=== PATIENT | male | born 1995 | race Caucasian/White ===

== ENCOUNTER 2018-06-29 23:06 | Emergency (ER) | payer MEDICAID ==
[~2018-06-29] VITALS: Ht 170.2 cm; Wt 74.8 kg
[2018-06-30] MEDS ORDERED: Vibramycin100 MG PO (00:39)
== END 2018-06-30 01:23 | disposition home or self-care (01) ==
LOC: ER 23:06
DX: L02.413 Cutaneous abscess of right upper limb (principal); F19.10 Other psychoactive substance abuse, uncomplicated; F17.200 Nicotine dependence, unspecified, uncomplicated; Z79.2 Long term (current) use of antibiotics
CPT/HCPCS: 10060; 73090; 99283-25

== ENCOUNTER 2019-01-03 14:14 | Inpatient (IN) | payer SELFPAY ==
[~2019-01-03] VITALS: Ht 175.3 cm; Wt 72.6 kg
[~2019-01-03 14:14] MED LIST: Augmentin 875-1 EACH PO; Bactrim Ds Tab1 EACH PO; IBUP800 PO; Vibramycin100 MG PO
[2019-01-03 14:53] LABS: BASOPHILS ABSOLUTE AUTO 0.05 K/mm3 (0.00-0.23); BASOPHILS PERCENT AUTO 0 % (0-2); EOSINOPHILS PERCENT AUTO 0 % (0-6); Hemoglobin 13.4 g/dL (13.5-17.5); IMMATURE GRAN ABSOLUTE AUTO 0.03 K/mm3 (0.00-0.10); IMMATURE GRAN PERCENT AUTO 0 % (0-1); LYMPHOCYTES ABSOLUTE AUTO 1.17 K/mm3 (0.84-5.20); LYMPHOCYTES PERCENT AUTO 10 % (21-46); MONOCYTES ABSOLUTE AUTO 1.18 K/mm3 (0.16-1.47); MONOCYTES PERCENT AUTO 10 % (4-13); Mean Corpuscular HGB 30.9 pg (26.0-34.0); Mean Corpuscular HGB Conc 35.3 g/dL (31.5-36.5); Mean Corpuscular Volume 88 fL (80-100); Mean Platelet Volume 9.7 fL (9.1-12.4); NEUTROPHILS ABSOLUTE AUTO 9.17 K/mm3 (1.96-9.15); NEUTROPHILS PERCENT AUTO 79 % (41-73); Platelet Count 250 K/mm3 (150-400); RDW Coefficient Variation 12.8 % (11.7-14.2); RDW Standard Deviation 41.4 fL (35.1-46.3); Red Blood Cell Count 4.33 M/mm3 (4.30-5.90)
[2019-01-03 15:13] LABS: Anion Gap 8 mmol/L (6-16); Blood Urea Nitrogen 12 mg/dL (8-24); Bun/Creatinine Ratio 14.4 (12.0-20.0); CO2, Blood 26 mmol/L (21-32); Calcium, Blood 9.1 mg/dL (8.5-10.1); Chloride, Blood 99 mmol/L (98-108); Creatinine, Blood 0.83 mg/dL (0.60-1.20); Glomerular Filtration Rate >60 (60-); Glucose, Blood 99 mg/dL (70-99); Potassium, Blood 4.2 mmol/L (3.5-5.5); Sodium, Blood 133 mmol/L (136-145)
--- NOTE | 2019-01-04 05:42 | NUR ---
SHIFT SUMMARY AND TRANSFER NOTE: PT ARRIVED TO UNIT @ 1949 THIS SHIFT. PT IS A&O, INDEPENDENT IN . PT REPORTS "FALLING DOWN A HILL AND SCRAPING FINGER ON GRAVEL" X 2.5 WKS AGO. IT HAS PROGRESSIVELY GOTTEN WORSE, PER PT. ABSCESS TO R INDEX FINGER IS PURULENT. SWELLING + REDNESS TO ENTIRE R HAND, PT UNABLE TO MAKE A FIST D/T SWELLING/TIGHTNESS AND PAIN. CLEANED SITE PT COULD TOLERATE, AND PT PUT STANDARD BAND AID OVER THE SITE HE "COULDN'T TOLERATE ANYMORE TOUCHING." PHOTOS DOCUMENTED AFTER CONSENT GAINED. SEE CHART FOR IMAGES. PT HAS SERVICE DOG AT BEDSIDE, APPROVED BY NURSING SHOW DESIGN SUPERVISOR. LOW GRADE FEVER OF 100.1 THIS AM; ADMINISTERD 500MG TYLENOL PER ORDERS. TEMP DOWN TO 99.2. VSS OTHERWISE. RESP E/U ON RA. LR AT 150 ML/HR X 1 BAG; INFUSION COMPLETE. NO DVT PROPHYLAXIS PER ORDERS. WILL CONT TO MONITOR AND PROVIDE CARE UNTIL PRESUMED BY ONCOMING RN.
--- NOTE | 2019-01-04 13:45 | NUR ---
History, Chart, Medications and Allergies reviewed before start of procedure. Lungs clear T/O to Auscultation. Patient confirms NPO status and agrees with scheduled surgery.
--- NOTE | 2019-01-04 15:13 | NUR ---
01/04/19 1513 Serena Tripp ALL COUNTS CORRECT.
--- NOTE | 2019-01-04 16:19 | NUR ---
RECIEVED PATIENT AT 1506 FROM OR ROOM. RECIEVED REPORTS PATIENTS VSS DRESSING CLEAN DRY INTACT. PATIENT COOPERATIVE AND BECAME ALERT AND ORIENTED AND STARTED TO SAY HURT. MEDICATED FOR PAIN AND TITRATED MEDICATION FERMÍN 5 MINUTES STARTING AT 1518 UP TO 175 MG OF FENTANYL. PATIENT DID NOT REPORT BETTER APIN CONTROLL BUT FACIAL EXPRESSION DOES NOT SHW PAIN, NO GRIMACING ETCETERA. TURNED CARE OVER TO Yair MELARA RN AT 1540.
--- NOTE | 2019-01-04 17:32 | NUR ---
SUMMARY PT RESTING QUIETLY IN BED, HAS BEEN INDEPENDENT IN THE ROOM, PT HAD AN I AND D OF HIS R INDEX FINGER AND THUMB TODAY, CRISTHIAN WELL, PT MED PER EMAR FOR PAIN, PT OCC TALKING IN THE ROOM, WHEN ASKED TO WHO HE REPLIES, "TO MYSELF" PT WITH A HISTORY OF SCHIZOPHRENIA, ASKED PT IF HE WAS ON MEDS FOR THIS AND HE REPLIED, "NONE OF THEM HELP" PT VERY STOIC AND STANDOFFISH, VSS, NO ACUTE CHANGES, WILL CONT TO MONITOR
--- NOTE | 2019-01-05 01:26 | NUR ---
PAIN: PLACED CALL TO HOSPITALIST IN REGARDS TO UNCONTROLLED PAIN. HOSPITALIST ORDERED 400 MG IBUPROFEN Q4H PRN, IN ADDITION TO 5 MG OXY Q6H PRN. WILL CONT TO MONITOR.
[2019-01-05 05:35] LABS: BASOPHILS ABSOLUTE AUTO 0.07 K/mm3 (0.00-0.23); BASOPHILS PERCENT AUTO 1 % (0-2); EOSINOPHILS ABSOLUTE AUTO 0.36 K/mm3 (0.00-0.68); EOSINOPHILS PERCENT AUTO 5 % (0-6); Hematocrit 37.5 % (37.0-53.0); Hemoglobin 12.2 g/dL (13.5-17.5); IMMATURE GRAN PERCENT AUTO 0 % (0-1); LYMPHOCYTES ABSOLUTE AUTO 3.38 K/mm3 (0.84-5.20); LYMPHOCYTES PERCENT AUTO 45 % (21-46); MONOCYTES ABSOLUTE AUTO 1.18 K/mm3 (0.16-1.47); MONOCYTES PERCENT AUTO 16 % (4-13); Mean Corpuscular HGB 30.3 pg (26.0-34.0); Mean Corpuscular HGB Conc 32.5 g/dL (31.5-36.5); Mean Platelet Volume 10.4 fL (9.1-12.4); NEUTROPHILS ABSOLUTE AUTO 2.57 K/mm3 (1.96-9.15); NEUTROPHILS PERCENT AUTO 34 % (41-73); Platelet Count 208 K/mm3 (150-400); RDW Coefficient Variation 13.2 % (11.7-14.2); RDW Standard Deviation 45.2 fL (35.1-46.3); Red Blood Cell Count 4.02 M/mm3 (4.30-5.90); White Blood Cell Count 7.56 K/mm3 (4.00-11.30)
[2019-01-05 05:38] LABS: Mean Corpuscular Volume 93 fL (80-100)
[2019-01-05 06:08] LABS: Anion Gap 6 mmol/L (6-16); Blood Urea Nitrogen 13 mg/dL (8-24); Bun/Creatinine Ratio 13.3 (12.0-20.0); CO2, Blood 29 mmol/L (21-32); Calcium, Blood 8.6 mg/dL (8.5-10.1); Chloride, Blood 104 mmol/L (98-108); Creatinine, Blood 0.98 mg/dL (0.60-1.20); Glomerular Filtration Rate >60 (60-); Glucose, Blood 85 mg/dL (70-99); Potassium, Blood 3.6 mmol/L (3.5-5.5); Sodium, Blood 139 mmol/L (136-145)
[2019-01-05 11:22] LABS: Vancomycin, Trough 22.6 ug/mL (5.0-10.0)
--- NOTE | 2019-01-05 11:26 | NUR ---
CRITICAL VANCO TROUGH VALUE RECIEVED, RESULT REPORTED TO DIRK IN PHARMACY.
--- NOTE | 2019-01-05 12:53 | NUR ---
Spiritual care visit conducted. I was approached by a [employer] employee and asked if I could deliver a portable wagon and dog food to patient. I first went into patient's room and introduced myself. Patient was not very talkative but stated that he was reorginizing his things so that when he leaves he can travel more easily. I said that someone had donated some items that may help with his current dilemma. I then brought the wagon and the food into patient and he smiled and expressed gratitiude because they are both items that he is needing. Patient remained very quiet and did not engage in conversation so I prayed a blessing and he blessed me. I left the room.
--- NOTE | 2019-01-05 13:18 | NUR ---
1305 VERIFIED WITH PHARMACY THAT VANCO 1G COULD BE GIVEN, PHARMACY REPORTED YES AND GIVE NEXT DOSE AT 1830. 1310 PT NOT IN ROOM.
--- NOTE | 2019-01-05 13:31 | NUR ---
LATE ENTRY. 1200 DR. HARMAN IN TO SEE PT, R INDEX FINGER AND THUMB SOAKED IN CHLORHEXIDINE SOLUTION FOR 10 MINUTES EACH DIGIT, THEN REDRESSED ORDERED.
--- NOTE | 2019-01-05 13:33 | NUR ---
1330 PT RETURNED TO ROOM, IV VANCO STARTED.
--- NOTE | 2019-01-05 17:53 | NUR ---
SHIFT SUMMARY. A&OX4, INDEPENDENT IN ROOM. PT DENIES SOB, N/V, SOB. OCCASSIONALLY OUT TO SMOKE. PAIN MANAGED WITH CURRENT ORDERS. NEW IV STARTED. NO NEW CHANGES.
--- NOTE | 2019-01-06 01:33 | NUR ---
PATIENT AGITATED PATIENT WOKEN BY RN TO START IV ANTIBIOTIC. AFTER PATIENT WOKE UP PATIENT BECAME INCREASINGLY AGITATED YELLING OBSCENITIES IN HIS ROOM AND YELLING AT WHAT APPEARED TO BE HALLUCINATIONS. RN SHUT ROOM DOOR TO REDUE DISTURBANCE TO OTHER PATIENTS. PATIENT BEGAN SCREAMING THREATS TO UNKNOWN INDIVIDUALS WHILE ALONE IN HIS ROOM. RN ENTERED AND ASKED PATIENT TO LOWER HIS VOICE. PATIENT YELLED ABOSCENTIES AT RN AND DEMANDED HIS ANTIBIOTIC BE STOPPED. PATIENT BEGAN PULLING AT IV LINE. RN ABLE TO DISCONNECT IV TUBING. PATIENT LEFT ROOM AND WENT OUTSIDE. PATIENT RETURNED APPROXIMATELY 10 MINUTES LATER. PATIENT APOLOGIZED FOR HIS OUTBURST AND STATED HE WOULD ALLOW HIS IV ANTIBIOTIC TO BE RECONNECTED.
--- NOTE | 2019-01-06 06:28 | NUR ---
SHIFT SUMMARY PATIENT SLEPT MOST OF NIGHT EXCEPT FOR AN EPISODE OF AGITATION. PATIENT HAS REFUSED WOUND CARE AND ROLLED OVER OR COVERED HIS FACE WHEN ASKED IF HE WILL PARTICIPATE. MEDICATED X 1 FOR PAIN. DENIES NAUSEA OR SHORTNESS OF BREATH. WELL BEHAVED DOG IN ROOM. CALL LIGHT IN REACH, WILL CONTINUE TO MONITOR.
--- NOTE | 2019-01-06 15:08 | NUR ---
SECURITY CALLED AND TOOK PT'S BELONGINGS TO SAFE. INCLUDING A POCKET KNIFE RN FOUND UNDER PT'S PILLOW. DR HARMAN VIEWED PT'S HAND AT AROUND 1100 AND RN RE-DRESSED WITH NONADHERENT GAUZE/COBAN. PT HAD A DOG IN THE ROOM STATING IT IS HIS FRIEND JP WHO WAS SENT TO RETIREMENT. PT AGREED FOR DOG TO GO TO [facility] PT IS UNABLE TO CARE FOR DOG IN HOSPITAL. RN'S WERNT SURE OF DOG OWNERS NAME- PT THOUGHT IS WAS TIFFANIE RIVERO AND OR TIFFANIE LANG- CALLED [employer] AND GAVE THEM THE NAME.
--- NOTE | 2019-01-06 17:13 | NUR ---
SUMM- PT ALERT, VERBAL AND DIRECTABLE. THIS AM HAD A MANIC EPISODE AND BEGAN SCREAMING AND THREATENING TO SLASH THROATS, CARVE OUT THAT "BITCHES" CHEST. ANGER SPOKEN ABOUT DIFFERENT NATIONALITIES, AND PEDIFILES. WAS DIRECTABLE WHEN RN RETURNED WITH HIS PAIN PILLS AND WAS ABLE TO STAY CALM IN ORDER TO RECEIVE MED. 3-4 MORE OUTBURSTS OF SCREAMING ABOUT HARM DONE TO HIM, PUNKS, PEOPLE DOING HIM HARM. DID NOT DIRECT AT STAFF, BUT ONE TIME HE APPEARED PARANOID AND HAD HIS HAND IN HIS POCKET, RN WAS CONCERNED HE MIGHT HAVE A WEAPON. RN LATER FOUND A 2-4" POCKET KNIFE IN HIS BED, WAS ABLE TO RETRIEVE IT WITH OUT CONFRONTATION WITH PT. GAVE KNIFE SECURITY TOOK TO BELONGINGS THAT ARE DOWNSTAIRS. PT GOES OUTSIDE TO SMOKE. STEADY ON FEET. PAIN MANAGED WITH OXYCODONE AND IBUPROFEN Q4 PRN, STATES PAIN REMAINS BUT MEDS HELP. TOLERATING FOOD AND FLUIDS. VOIDING AND STATES BM 02/02. WILL REPORT TO NOC RN.
--- NOTE | 2019-01-07 05:15 | NUR ---
SHIFT SUMMARY THE PT ADMITTED FOR CELLULITIS AND ABCESS OF THE R HAND. FULL CODE. REGULAR DIET. ELEVATE RUE TOLLERATED. NO MECHANICAL OR CHEMICAL PROPHYLAXIS DUE TO LOW RISK FOR VTE. SOAK R INDEX FINGER AND THUMB IN A BASIN OF CHLORHEXIDINE MIXED WITH WATER FOR 10 MINUTES WHILE DOING FOSTER EXERCISES. THEN RE-APPLY DRESSING (NON-ADHERENT GAUZE COVERED WITH COBAN) BID. 20 G IV TO L FA. MEDS WHOLE WITH WATER. INDEPENDENT. HOMELESS. PER REPORT THE PT HAD A KNIFE UNDER PILLOW YESTERDAY THAT WAS REMOVED AND TAKEN TO SECURITY. THE PT PRESENTED TO THE ED WITH C/O SWELLING AND DRAINAGE TO THE R FINGER AFTER SCRAPING IT 2.5 WEEKS PRIOR. THE PT REPORTED HAVING FALLEN DOWN A HILL AND SCRAPING FINGER ON GRAVEL. THE PT ALSO REPORTED HURING SHOULDER DURING FALL, WARM BLANKET APPLIED AND PT HAD NO FURTHER C/O SHOULDER PAIN THE REMAINDER OF THE NIGHT. THE PT UNDERWENT I AND d WITH CX AND RESULTS SHOWED STAPH BUT NOT MRSA. THE PLAN IS FOR THE PT TO REMAIN IN THE HOSPITAL DUE TO BEING HOMELESS WITH PSYCHIATRIC ISSUES UNTIL WOUNDS SHOW SIGNS OF GOOD HELING. IT IS UNLIKELY THAT PT CAN CARE FOR WOUNDS OUTPATIENT. THE PT HAD SEVERAL YELLING OUTBURSTS THIS NIGHT, ONE OF WHICH OCCURRED OFF THE UNIT AND SECURITY WAS CALLED. THE PT USES VULGAR LANGUAGE AND THREATENS TO CUT SOMEONE OR SOMETHING OPEN WITH A CHAINSAW, AMONG OTHER THINGS. THE PT REFERS TO THIS PERSON THAT HE WISHES TO CUT OPEN A CHILD MOLESTER. THE PT HAD ONE OUTBURST WHERE THE PT WAS SLAMMING DOORS IN ROOM AND SOUNDED THOUGH PT MAY HAVE BEEN BANGING ON WADE BUT THAT IS NOT COMPLETELY CLEAR. THE PT DOES NO APPEAR TO BE A THREAT TO STAFF OR OTHER PATIENTS. THE PT WENT OUTSIDE TO SMOKE SEVERAL TIMES. THE PT APPEARS TO BE SLEEPING COMFORTABLY AT THIS TIME WITH NO APPARENT SIGNS OF ACUTE DISTRESS. ABLE TO MAKE NEEDS KNOWN AND CALL LIGHT IN REACH.
--- NOTE | 2019-01-07 07:51 | NUR ---
PT DISCHARGED/VIOLENT EPISODE PT ESCORTED OUT BY SECURITY. PT WOKE THIS AM AND STARTED YELLING/SCREAMING/CURSING. NURSING IMAGING ENGINEER & SECURITY CALLED TO ASSIST WITH PT BEHAVIOR. PT STARTED PUNCHING THE DOOR & WADE WITHIN THE ROOM. PT STATED HE WANTED TO LEAVE & COULDNT REMEMBER WHAT CARE HE HAD RECIEVED. NURSING IMAGING ENGINEER, LILLI, TRIED TO GET PT TO AGREE TO SEE A ER PHYSICIAN. PT REFUSED & STATED HE WANTED HIS THINGS AND TO GET OUT OF THIS HOSPITAL. PT WAS HAVING AUDITORY & VISUAL HALLUCINATIONS. PT NOW DISCHARGED AMA. PT REFUSED TO SIGN ANY PAPERWORK. PT RIPED HIS IV OUT. IV INTACT. KILN MAINTENANCE AWARE OF SITUATION. DR. RAYMOND CALLED AND INFORMED OF EVENT.
--- NOTE | 2019-01-07 08:49 | NUR ---
THIS RN CONTACTED BY NURSING FOOD SERVICE AIDE LILLI WHO STATED PT RETURNED TO HOSPITAL ASKING FOR ANITBIOTICS AND PAIN MEDICATION. THIS RN CONTACTED DR RAYMOND WHO WROTE FOR 500 MG KEFLEX PO BID #[id number] NO REFILLS. CALLED THIS [facility] TO [facility] PER NURSING FOOD SERVICE AIDE'S REQUEST. DR. RAYMOND DID NOT WRITE FOR PAIN MEDICATION.
== END 2019-01-07 07:40 | disposition left against medical advice (07) | DRG 872 ==
LOC: ER 14:14 → MEDS 17:25
PROVIDERS: Orthopaedic Surgery; Pharmacist; Physician Assistant; ADMIT Internal Medicine
PROC: 0HDFXZZ Extraction of Right Hand Skin, External Approach (ICD-10-PCS; principal; 2019-01-04 13:30)
DX: A41.01 Sepsis due to Methicillin susceptible Staphylococcus aureus (principal); L02.511 Cutaneous abscess of right hand; L03.011 Cellulitis of right finger; Z59.0 Homelessness; F17.200 Nicotine dependence, unspecified, uncomplicated
CPT/HCPCS: 36415; 73130; 80048; 80202; 83605; 85025; 87040; 87070; 87075; 87077; 87147; 87186; 87205; 96365; 96375; 97110; 97162; 99285-25; J0690; J0696; J1885; J3010; J3370; J7120

== ENCOUNTER → 2019-07-19 | Outpatient (CLI) | payer OTHER ==
[~2019-07-19] MED LIST changes: +Atarax10 MG PO; +Augmentin 500-1 EACH PO; +IBUP800; +REXULTI2 MG PO; +Roxicodone5 MG PO
[2019-07-19 20:08] LABS: BASOPHILS PERCENT AUTO 1 % (0-2); EOSINOPHILS ABSOLUTE AUTO 0.43 K/mm3 (0.00-0.68); EOSINOPHILS PERCENT AUTO 6 % (0-6); Hematocrit 38.2 % (37.0-53.0); Hemoglobin 12.8 g/dL (13.5-17.5); IMMATURE GRAN ABSOLUTE AUTO 0.01 K/mm3 (0.00-0.10); IMMATURE GRAN PERCENT AUTO 0 % (0-1); LYMPHOCYTES ABSOLUTE AUTO 2.08 K/mm3 (0.84-5.20); LYMPHOCYTES PERCENT AUTO 29 % (21-46); MONOCYTES ABSOLUTE AUTO 0.62 K/mm3 (0.16-1.47); MONOCYTES PERCENT AUTO 9 % (4-13); Mean Corpuscular HGB 30.7 pg (26.0-34.0); Mean Corpuscular HGB Conc 33.5 g/dL (31.5-36.5); Mean Corpuscular Volume 92 fL (80-100); Mean Platelet Volume 10.2 fL (9.1-12.4); NEUTROPHILS ABSOLUTE AUTO 3.85 K/mm3 (1.96-9.15); NEUTROPHILS PERCENT AUTO 54 % (41-73); Platelet Count 284 K/mm3 (150-400); RDW Coefficient Variation 12.1 % (11.7-14.2); RDW Standard Deviation 40.7 fL (35.1-46.3); Red Blood Cell Count 4.17 M/mm3 (4.30-5.90); White Blood Cell Count 7.09 K/mm3 (4.00-11.30)
[2019-07-19 20:38] LABS: Percent Saturation 33.6 % (20.0-50.0)
== END ==
LOC: LAB 19:29 → LAB SHORT 19:29
PROVIDERS: Family Medicine
DX: D50.9 Iron deficiency anemia, unspecified (principal); D64.89 Other specified anemias
CPT/HCPCS: 82728; 83540; 83550; 85025; 85060

== ENCOUNTER 2019-08-09 18:17 | Emergency (ER) | payer OTHER ==
[~2019-08-09] VITALS: Ht 177.8 cm; Wt 68.0 kg
[~2019-08-09 18:17] MED LIST changes: -Atarax10 MG PO; -Roxicodone5 MG PO
[2019-08-09] MEDS ORDERED: Atarax10 MG PO (18:26)
[2019-08-09] MEDS ORDERED: Roxicodone5 MG PO (19:49)
== END 2019-08-09 20:17 | disposition home or self-care (01) ==
LOC: ER 18:17
DX: S42.021A Displaced fracture of shaft of right clavicle, initial encounter for closed fracture (principal); V29.9XXA Motorcycle rider (driver) (passenger) injured in unspecified traffic accident, initial encounter; F17.210 Nicotine dependence, cigarettes, uncomplicated; F32.9 Major depressive disorder, single episode, unspecified; F20.9 Schizophrenia, unspecified
CPT/HCPCS: 73030; 99283-25

== ENCOUNTER 2020-11-17 23:00 | Emergency (ER) | payer OTHER ==
[~2020-11-17] VITALS: Ht 177.8 cm; Wt 63.5 kg
[~2020-11-17 23:00] MED LIST changes: +Atarax10 MG PO; +Roxicodone5 MG PO
== END 2020-11-18 00:50 | disposition home or self-care (01) ==
LOC: ER 23:00
DX: S20.211A Contusion of right front wall of thorax, initial encounter (principal); M79.672 Pain in left foot; R06.02 Shortness of breath; F17.210 Nicotine dependence, cigarettes, uncomplicated; Z79.899 Other long term (current) drug therapy; W01.198A Fall on same level from slipping, tripping and stumbling with subsequent striking against other object, initial encounter
CPT/HCPCS: 71045; 99283-25; A9270

== ENCOUNTER 2021-03-25 03:38 | Emergency (ER) | payer OTHER ==
[2021-03-25 07:39] LABS: Alanine Aminotransfer (ALT/SGP 27 U/L (12-78); Albumin, Blood 4.1 g/dL (3.4-5.0); Albumin/Globulin Ratio 1.3 (0.8-1.8); Alk Phos 58 U/L (50-136); Anion Gap 2 mmol/L (6-16); Aspartate Aminotrans (AST/SGOT 27 U/L (12-37); Bilirubin, Total 0.5 mg/dL (0.1-1.0); Blood Urea Nitrogen 17 mg/dL (8-24); Bun/Creatinine Ratio 14.3 (12.0-20.0); CO2, Blood 31 mmol/L (21-32); Calcium, Blood 9.1 mg/dL (8.5-10.1); Chloride, Blood 107 mmol/L (98-108); Creatinine, Blood 1.19 mg/dL (0.60-1.20); Globulin, Blood 3.1 g/dL (2.2-4.0); Glomerular Filtration Rate >60 (60-); Glucose, Blood 83 mg/dL (70-99); Potassium, Blood 3.5 mmol/L (3.5-5.5); Sodium, Blood 140 mmol/L (136-145); Total Protein, Blood 7.2 g/dL (6.4-8.2)
[2021-03-25 07:40] LABS: BASOPHILS ABSOLUTE AUTO 0.07 K/mm3 (0.00-0.23); BASOPHILS PERCENT AUTO 1 % (0-2); EOSINOPHILS ABSOLUTE AUTO 0.33 K/mm3 (0.00-0.68); EOSINOPHILS PERCENT AUTO 5 % (0-6); Hematocrit 39.6 % (37.0-53.0); Hemoglobin 13.1 g/dL (13.5-17.5); IMMATURE GRAN ABSOLUTE AUTO 0.01 K/mm3 (0.00-0.10); IMMATURE GRAN PERCENT AUTO 0 % (0-1); LYMPHOCYTES PERCENT AUTO 37 % (21-46); MONOCYTES ABSOLUTE AUTO 0.67 K/mm3 (0.16-1.47); MONOCYTES PERCENT AUTO 10 % (4-13); Mean Corpuscular HGB Conc 33.1 g/dL (31.5-36.5); Mean Corpuscular Volume 91 fL (80-100); Mean Platelet Volume 9.3 fL (9.1-12.4); NEUTROPHILS ABSOLUTE AUTO 3.06 K/mm3 (1.96-9.15); NEUTROPHILS PERCENT AUTO 47 % (41-73); Platelet Count 245 K/mm3 (150-400); RDW Coefficient Variation 12.8 % (11.7-14.2); RDW Standard Deviation 42.9 fL (35.1-46.3); Red Blood Cell Count 4.37 M/mm3 (4.30-5.90)
[2021-03-25 07:41] LABS: White Blood Cell Count 6.54 K/mm3 (4.00-11.30)
== END 2021-03-25 05:15 | disposition home or self-care (01) ==
LOC: ER 03:38
PROVIDERS: Emergency Medicine
DX: N20.1 Calculus of ureter (principal); F17.210 Nicotine dependence, cigarettes, uncomplicated
CPT/HCPCS: 74176; 80053; 85025; 96374; 96375; 99284-25; A9270; J1170; J2405; J7030

== ENCOUNTER 2022-09-25 20:56 | Emergency (ER) | payer OTHER ==
[~2022-09-25] VITALS: Ht 172.7 cm; Wt 72.6 kg
[~2022-09-25 20:56] MED LIST changes: +OLAN10 PO; +OXAYDO5 M1 PO
[2022-09-26] MEDS ORDERED: Percocet 5-3251 EACH PO (00:43)
== END 2022-09-26 00:59 | disposition home or self-care (01) ==
LOC: ER 20:56
DX: T25.232A Burn of second degree of left toe(s) (nail), initial encounter (principal); T31.0 Burns involving less than 10% of body surface; F17.210 Nicotine dependence, cigarettes, uncomplicated; X08.8XXA Exposure to other specified smoke, fire and flames, initial encounter
CPT/HCPCS: A9270

== ENCOUNTER 2023-06-20 15:51 | Emergency (ER) | payer OTHER ==
[~2023-06-20] VITALS: Ht 167.6 cm; Wt 55.3 kg
[~2023-06-20 15:51] MED LIST changes: +Percocet 5-3251 EACH PO
[2023-06-20] MEDS ORDERED: PALIPERIDONE ER6 MG PO (16:40)
[2023-06-20] MEDS ORDERED: Hydroxyzine HCl50 MG (16:40)
[2023-06-20] MEDS ORDERED: TRAZ50 PO (16:41)
== END 2023-06-20 16:52 | disposition home or self-care (01) ==
LOC: ER 15:51
DX: S60.211A Contusion of right wrist, initial encounter (principal); S50.11XA Contusion of right forearm, initial encounter; Y04.8XXA Assault by other bodily force, initial encounter; F17.210 Nicotine dependence, cigarettes, uncomplicated
CPT/HCPCS: 73090; 99283-25; A9270

== ENCOUNTER 2023-11-30 03:24 | Emergency (ER) | payer OTHER ==
[~2023-11-30] VITALS: Ht 177.8 cm; Wt 72.6 kg
[~2023-11-30 03:24] MED LIST changes: +Hydroxyzine HCl50 MG; +PALIPERIDONE ER6 MG PO; +TRAZ50 PO
[2023-11-30 03:39] VITALS: BP 132/92
[2023-11-30] MEDS ORDERED: OLAN5 PO (03:42)
== END 2023-11-30 06:33 | disposition home or self-care (01) ==
LOC: ER 03:24
DX: S61.216A Laceration without foreign body of right little finger without damage to nail, initial encounter (principal); F17.210 Nicotine dependence, cigarettes, uncomplicated; W26.8XXA Contact with other sharp object(s), not elsewhere classified, initial encounter; W18.30XA Fall on same level, unspecified, initial encounter
CPT/HCPCS: 12001; 73120; 99283-25

== ENCOUNTER 2024-03-04 23:24 | Observation (INO) | payer OTHER ==
[~2024-03-04] VITALS: Ht 167.6 cm; Wt 74.8 kg
[~2024-03-04 23:24] MED LIST changes: +OLAN5 PO
[2024-03-04] MEDS ORDERED: OLANZapine ODT 5 MG Tab PO ONE (23:40)
[2024-03-04] MEDS ORDERED: Diphth,Pertuss(Acell),Tet Vac 0.5 ML VIAL IM ONE (23:45)
[2024-03-05 00:18] LABS: BASOPHILS ABSOLUTE AUTO 0.09 K/mm3 (0.00-0.23); BASOPHILS PERCENT AUTO 1 % (0-2); EOSINOPHILS PERCENT AUTO 6 % (0-6); Hematocrit 39.7 % (37.0-53.0); Hemoglobin 13.4 g/dL (13.5-17.5); IMMATURE GRAN ABSOLUTE AUTO 0.01 K/mm3 (0.00-0.10); IMMATURE GRAN PERCENT AUTO 0 % (0-1); LYMPHOCYTES ABSOLUTE AUTO 2.51 K/mm3 (0.84-5.20); LYMPHOCYTES PERCENT AUTO 38 % (21-46); MONOCYTES ABSOLUTE AUTO 0.67 K/mm3 (0.16-1.47); MONOCYTES PERCENT AUTO 10 % (4-13); Mean Corpuscular HGB 29.5 pg (26.0-34.0); Mean Corpuscular HGB Conc 33.8 g/dL (31.5-36.5); Mean Corpuscular Volume 87 fL (80-100); Mean Platelet Volume 9.5 fL (9.1-12.4); NEUTROPHILS ABSOLUTE AUTO 2.85 K/mm3 (1.96-9.15); NEUTROPHILS PERCENT AUTO 44 % (41-73); Platelet Count 241 K/mm3 (150-400); RDW Coefficient Variation 13.2 % (11.7-14.2); RDW Standard Deviation 42.5 fL (35.1-46.3); Red Blood Cell Count 4.55 M/mm3 (4.30-5.90); White Blood Cell Count 6.53 K/mm3 (4.00-11.30)
[2024-03-05 00:39] LABS: Alanine Aminotransfer (ALT/SGP 21 U/L (12-78); Albumin, Blood 4.3 g/dL (3.4-5.0); Albumin/Globulin Ratio 1.3 (0.8-1.8); Alk Phos 77 U/L (50-136); Anion Gap 8 mmol/L (3-11); Aspartate Aminotrans (AST/SGOT 22 U/L (12-37); Bilirubin, Total 0.5 mg/dL (0.1-1.0); Blood Urea Nitrogen 20 mg/dL (8-24); CO2, Blood 27 mmol/L (21-32); Calcium, Blood 9.7 mg/dL (8.5-10.1); Chloride, Blood 108 mmol/L (98-108); Creatinine, Blood 0.91 mg/dL (0.60-1.20); Globulin, Blood 3.4 g/dL (2.2-4.0); Glomerular Filtration Rate 116 (60-); Glucose, Blood 135 mg/dL (70-99); Potassium, Blood 3.6 mmol/L (3.5-5.5); Sodium, Blood 139 mmol/L (136-145); Total Protein, Blood 7.7 g/dL (6.4-8.2)
[2024-03-05 00:40] LABS: Ethanol (Alcohol), Blood, Med <3 mg/dL
[2024-03-05 14:12] LABS: Source, Urine Voided
[2024-03-05 14:41] LABS: Appearance, Urine Turbid (Clear); Bilirubin, Urine Neg (Neg); Blood, Urine Neg (Neg); Glucose Qualitative, Urine Neg (Neg); Ketones, Urine Neg (Neg); Leukocyte Esterase, Urine Neg (Neg); Nitrite, Urine Neg (Neg); Protein, Urine Neg (Neg); Urobilinogen, Urine NORM (Normal)
[2024-03-05 14:57] LABS: U Amphetamine Screen DETECTED; U Barbituate Screen Not Detected; U Benzodiazapine Screen Not Detected; U Buprenorphine Screen Not Detected; U Cannabinoids Screen DETECTED; U Cocaine Screen Not Detected; U Methadone Screen Not Detected; U Methamphetamine Screen DETECTED; U Opiates Screen Not Detected; U Oxycodone Screen Not Detected; U Phencyclidine Screen Not Detected
[2024-03-05 14:59] LABS: Color, Urine Pale Yellow (P-Yellow)
[2024-03-05 15:00] LABS: Red Blood Cells, Urine Not Seen /hpf (0-2); White Blood Cells, Urine 0-2 /hpf (0-5)
[2024-03-05 15:01] LABS: Amorphous Heavy (0-Heavy); Bacteria Not Seen /hpf; Squamous Epithelial Cells Not Seen /hpf (Few)
[2024-03-05] MEDS ORDERED: OLANZapine 10 MG Tab PO ONE (15:15)
[2024-03-05 15:42] LABS: Influenza A, PCR NEGATIVE (NEGATIVE); Influenza B, PCR NEGATIVE (NEGATIVE); Resp Syncytial Virus, PCR NEGATIVE (NEGATIVE); SARS-Cov-2 (COVID-19) PCR, MMC NEGATIVE (NEGATIVE)
[2024-03-05 19:57] VITALS: BP 131/74
[2024-03-05] MEDS ORDERED: OLANZapine 10 MG Tab PO SCH (21:00)
[2024-03-07 17:49] LABS: AMPHETAMINE,URN,QUANT 1224 ng/mL; MDA,URN,QUANT <200 ng/mL; MDEA,URN,QUANT <200 ng/mL; MDMA,URN,QUANT <200 ng/mL; METHAMPHETAMINE,URN,QUANT 2146 ng/mL; PHENTERMINE,URN,QUANT <200 ng/mL
[2024-03-08 12:12] LABS: 11-NOR-9-CARBOXY-THC,URN,QUANT 291 ng/mL
== END 2024-03-06 10:40 | disposition left against medical advice (07) ==
LOC: ER 23:24 → EOR 23:25
PROVIDERS: ADMIT Emergency Medicine
DX: S51.812A Laceration without foreign body of left forearm, initial encounter (principal); F20.9 Schizophrenia, unspecified; F17.210 Nicotine dependence, cigarettes, uncomplicated; X58.XXXA Exposure to other specified factors, initial encounter
CPT/HCPCS: 0241U; 12002; 80053; 81001; 85025; 86592; 99285-25; A9270; G0378; G0480

== ENCOUNTER 2024-07-14 15:33 | Emergency (ER) | payer OTHER ==
[~2024-07-14] VITALS: Ht 172.7 cm; Wt 62.6 kg
[2024-07-14 16:05] LABS: BASOPHILS ABSOLUTE AUTO 0.09 K/mm3 (0.00-0.23); BASOPHILS PERCENT AUTO 1 % (0-2); EOSINOPHILS ABSOLUTE AUTO 0.17 K/mm3 (0.00-0.68); EOSINOPHILS PERCENT AUTO 2 % (0-6); Hematocrit 44.3 % (37.0-53.0); Hemoglobin 15.9 g/dL (13.5-17.5); IMMATURE GRAN ABSOLUTE AUTO 0.02 K/mm3 (0.00-0.10); IMMATURE GRAN PERCENT AUTO 0 % (0-1); LYMPHOCYTES ABSOLUTE AUTO 2.83 K/mm3 (0.84-5.20); LYMPHOCYTES PERCENT AUTO 34 % (21-46); MONOCYTES ABSOLUTE AUTO 1.04 K/mm3 (0.16-1.47); MONOCYTES PERCENT AUTO 12 % (4-13); Mean Corpuscular HGB 30.5 pg (26.0-34.0); Mean Corpuscular HGB Conc 35.9 g/dL (31.5-36.5); Mean Corpuscular Volume 85 fL (80-100); Mean Platelet Volume 9.2 fL (9.1-12.4); NEUTROPHILS ABSOLUTE AUTO 4.22 K/mm3 (1.96-9.15); NEUTROPHILS PERCENT AUTO 51 % (41-73); Platelet Count 298 K/mm3 (150-400); RDW Standard Deviation 40.4 fL (35.1-46.3); Red Blood Cell Count 5.21 M/mm3 (4.30-5.90); White Blood Cell Count 8.37 K/mm3 (4.00-11.30)
[2024-07-14 16:23] LABS: Albumin, Blood 4.7 g/dL (3.4-5.0); Albumin/Globulin Ratio 1.2 (0.8-1.8); Bun/Creatinine Ratio 23.3 (12.0-20.0); Calcium, Blood 9.8 mg/dL (8.5-10.1); Creatinine, Blood 2.02 mg/dL (0.60-1.20); Globulin, Blood 3.9 g/dL (2.2-4.0); Total Protein, Blood 8.6 g/dL (6.4-8.2)
[2024-07-14] MEDS ORDERED: NS 1,000 ML IV SCH (16:30)
[2024-07-14 18:41] LABS: Source, Urine Clean Catch
[2024-07-14 18:44] LABS: Appearance, Urine Hazy (Clear); Blood, Urine 4+ (Neg); Color, Urine Amber (P-Yellow); Glucose Qualitative, Urine Neg (Neg); Ketones, Urine 1+ (Neg); Leukocyte Esterase, Urine 2+ (Neg); Nitrite, Urine Neg (Neg); Protein, Urine 2+ (Neg); Specific Gravity, Urine 1.025 (1.003-1.022); Urobilinogen, Urine 2+ (Normal)
[2024-07-14 18:53] LABS: Bilirubin, Urine 1+ (Neg)
[2024-07-14 18:55] LABS: Bacteria Few /hpf; Red Blood Cells, Urine 25-50 /hpf (0-2); Squamous Epithelial Cells Rare /hpf (Few)
[2024-07-14 19:45] VITALS: BP 132/87
[2024-07-18 16:02] LABS: HEPATITIS C AB CIA INTERP High Pos (Negative); HEPATITIS C ANTIBODY CIA INDEX >11.00 IV
[2024-07-20 17:22] LABS: HCV QNT BY NAAT (IU/ML) 90400 IU/mL; HCV QNT BY NAAT (LOG IU/ML) 4.96; HCV QNT BY NAAT INTERP Detected (Not Detected)
== END 2024-07-14 19:52 | disposition home or self-care (01) ==
LOC: ER 15:33
PROVIDERS: Student in an Organized Health Care Education/Training Program
DX: N17.9 Acute kidney failure, unspecified (principal); R74.01 Elevation of levels of liver transaminase levels; F17.210 Nicotine dependence, cigarettes, uncomplicated
CPT/HCPCS: 71045; 76705; 80053; 81001; 83690; 83880; 84484; 85025; 86803; 87086; 93005; 93010; 96360; 96361; 99284-25; J7030

== ENCOUNTER → 2024-07-27 | Outpatient (CLI) | payer OTHER ==
[2024-07-27 17:13] LABS: BASOPHILS ABSOLUTE AUTO 0.04 K/mm3 (0.00-0.23); BASOPHILS PERCENT AUTO 1 % (0-2); EOSINOPHILS ABSOLUTE AUTO 0.14 K/mm3 (0.00-0.68); EOSINOPHILS PERCENT AUTO 2 % (0-6); Hematocrit 37.1 % (37.0-53.0); Hemoglobin 12.8 g/dL (13.5-17.5); IMMATURE GRAN ABSOLUTE AUTO 0.01 K/mm3 (0.00-0.10); IMMATURE GRAN PERCENT AUTO 0 % (0-1); LYMPHOCYTES ABSOLUTE AUTO 2.15 K/mm3 (0.84-5.20); LYMPHOCYTES PERCENT AUTO 37 % (21-46); MONOCYTES PERCENT AUTO 10 % (4-13); Mean Corpuscular HGB 30.2 pg (26.0-34.0); Mean Corpuscular HGB Conc 34.5 g/dL (31.5-36.5); Mean Corpuscular Volume 88 fL (80-100); Mean Platelet Volume 10.1 fL (9.1-12.4); NEUTROPHILS ABSOLUTE AUTO 2.95 K/mm3 (1.96-9.15); NEUTROPHILS PERCENT AUTO 50 % (41-73); Platelet Count 255 K/mm3 (150-400); RDW Coefficient Variation 13.1 % (11.7-14.2); RDW Standard Deviation 42.1 fL (35.1-46.3); Red Blood Cell Count 4.24 M/mm3 (4.30-5.90); White Blood Cell Count 5.89 K/mm3 (4.00-11.30)
[2024-07-27 17:18] LABS: International Normalized Ratio 1.03
[2024-07-27 17:28] LABS: Percent Saturation 29.1 % (20.0-50.0)
[2024-07-27 17:32] LABS: Albumin, Blood 4.3 g/dL (3.4-5.0); Albumin/Globulin Ratio 1.2 (0.8-1.8); Bilirubin, Total 0.7 mg/dL (0.1-1.0); Bun/Creatinine Ratio 12.3 (12.0-20.0); Calcium, Blood 9.1 mg/dL (8.5-10.1); Creatinine, Blood 0.9 mg/dL (0.60-1.20); Globulin, Blood 3.6 g/dL (2.2-4.0); Potassium, Blood 3.6 mmol/L (3.5-5.5); Total Protein, Blood 7.9 g/dL (6.4-8.2)
[2024-07-29 15:00] LABS: HEPATITIS B SURFACE ANTIBODY 52.31 IU/L
[2024-07-29 15:09] LABS: HEPATITIS B SURFACE ANTIGEN Negative (Negative)
[2024-07-29 15:43] LABS: HBV CORE ANTIBODIES,TOTAL Negative (Negative)
[2024-07-29 15:49] LABS: HEPATITIS A ANTIBODIES, TOTAL Positive (Negative)
[2024-07-29 16:04] LABS: HIV 1,2 COMBO ANTIGEN/ANTIBODY Negative (Negative)
[2024-07-31 20:55] LABS: ALPHA-2-MACROGLOBUL,FIBROMETER 202 mg/dL (131-293); ALT,FIBROMETER 150 U/L (5-50); AST,FIBROMETER 80 U/L (9-50); CIRRHOMETER PATIENT SCORE 0.01; FIBROMETER INTERPRETATION See Report; FIBROMETER PATIENT SCORE 0.41; FIBROMETER PLATELET COUNT 255 k/uL; FIBROMETER PROTHROMBIN INDEX 89 % (90-120); FIBROSIS METAVIR CLASSIFICAT F2[F1-F2]; GGT,FIBROMETER 40 U/L (7-51); INFLAMETER METAVIR CLASSIFICAT A1/A2; INFLAMETER PATIENT SCORE 0.6; UREA NITROGEN,SERUM,FIBROMETER 11 mg/dL (7-20)
[2024-08-01 11:39] LABS: HCV GENOTYPE BY SEQUENCING 2b
== END ==
LOC: LAB SHORT 15:32 → LAB 15:32
PROVIDERS: Nurse Practitioner Family
DX: B18.2 Chronic viral hepatitis C (principal)
CPT/HCPCS: 80053; 82728; 82977; 83540; 83550; 83883; 84450; 84460; 84520; 85025; 85610; 86592; 86704; 86708; 87340; 87389; 87902

== ENCOUNTER → 2024-10-29 | Outpatient (CLI) | payer OTHER ==
[2024-10-31 22:15] LABS: HCV QNT BY NAAT (IU/ML) Not Detected; HCV QNT BY NAAT (LOG IU/ML) Not Detected; HCV QNT BY NAAT INTERP Not Detected (Not Detected)
== END ==
LOC: LAB 15:03 → LAB SHORT 15:03
PROVIDERS: Family Medicine
DX: B18.2 Chronic viral hepatitis C (principal)
CPT/HCPCS: 87522

== ENCOUNTER 2024-12-05 22:01 | Emergency (ER) | payer OTHER ==
[~2024-12-05] VITALS: Ht 167.6 cm; Wt 68.0 kg
[2024-12-05 22:32] VITALS: BP 141/93
== END 2024-12-05 22:52 | disposition left against medical advice (07) ==
LOC: ER 22:01
DX: R10.84 Generalized abdominal pain (principal); Z53.29 Procedure and treatment not carried out because of patient's decision for other reasons
CPT/HCPCS: 99281

== ENCOUNTER 2025-06-22 12:07 | Emergency (ER) | payer OTHER ==
[~2025-06-22] VITALS: Ht 170.2 cm; Wt 63.5 kg
[2025-06-22 12:20] VITALS: BP 155/98
== END 2025-06-22 12:37 | disposition home or self-care (01) ==
LOC: ER 12:07
DX: S00.83XA Contusion of other part of head, initial encounter (principal); Z02.89 Encounter for other administrative examinations; F17.210 Nicotine dependence, cigarettes, uncomplicated; Z79.899 Other long term (current) drug therapy; X79.XXXA Intentional self-harm by blunt object, initial encounter
CPT/HCPCS: 99282

== ENCOUNTER 2025-10-18 18:43 | Emergency (ER) | payer OTHER ==
[~2025-10-18] VITALS: Ht 177.8 cm; Wt 77.1 kg
[2025-10-18 20:01] VITALS: BP 220/123
[2025-10-18] MEDS ORDERED: HYDROcodone 5-APAP 325 TAB PO ONE (20:15)
[2025-10-18] MEDS ORDERED: RX Prepack 6 Tabs Oxycodone 5mg UD ONE (20:45)
[2025-10-18] MEDS ORDERED: HYDR1TAB94 PO (20:50)
[2025-10-18] MEDS ORDERED: AMOCLA875 PO (20:50)
== END 2025-10-18 21:02 | disposition home or self-care (01) ==
LOC: ER 18:43
DX: S02.40FA Zygomatic fracture, left side, initial encounter for closed fracture (principal); S02.40DA Maxillary fracture, left side, initial encounter for closed fracture; S02.32XA Fracture of orbital floor, left side, initial encounter for closed fracture; F17.210 Nicotine dependence, cigarettes, uncomplicated; Y04.8XXA Assault by other bodily force, initial encounter; Z79.899 Other long term (current) drug therapy
CPT/HCPCS: 70450; 70486; 72125; 93005; 93010; 99284-25; A9270; L0160